=== PATIENT | male | born 1945 | race Caucasian/White ===

== ENCOUNTER 2021-03-08 14:03 | Observation (INO) ==
[2021-03-08 15:03] LABS: Mean Platelet Volume 10.8 fL (9.4-12.4); Red Cell Distribution Width 13.2 % (11.5-14.5)
[2021-03-08 15:05] LABS: Hematocrit 38.4 % (37.5-50.1); Hemoglobin 13.2 g/dL (12.9-16.9); Immature Platelets 6.5 % (1.1-6.1); Mean Corpuscular HGB Conc 34.4 g/dL (31.6-35.5); Mean Corpuscular Hemoglobin 30.9 pg (28.0-33.3); Mean Corpuscular Volume 89.9 fL (83.0-100.0); Red Blood Count 4.27 M/mcL (4.19-5.50); White Blood Count 3.9 K/mcL (4.3-11.1)
[2021-03-08 15:13] LABS: INR 1.2; Prothrombin Time 13.3 Seconds (9.4-12.1)
[2021-03-08 15:16] LABS: Activated Partial Thrombo Time 34.1 Seconds (26.0-36.0)
[2021-03-08 15:41] LABS: Platelet Count 95 K/mcL (140-400)
[2021-03-08 15:48] LABS: Troponin I 0.37 ng/mL (< 0.04)
[2021-03-08] MEDS ORDERED: Isovue-370 500 ML BOTTLE IVP ONE (15:48)
[2021-03-08 15:52] LABS: Lymphocytes # 0.5 K/mcL (0.6-4.6); Neutrophils # 2.4 K/mcL (1.6-8.9)
[2021-03-08 15:54] LABS: Platelet Estimate Decreased (Normal)
[2021-03-08 15:56] LABS: Reactive Lymphocytes Present (Not Present)
[2021-03-08 16:16] LABS: BUN/Creatinine Ratio 31 (6-26); Blood Urea Nitrogen 27 mg/dL (8-23); Calcium 8.4 mg/dL (8.6-10.3); Carbon Dioxide 23 mEq/L (23-29); Chloride 100 mEq/L (98-107); Glucose 264 mg/dL (70-105); Osmolality,Calculated 292 (280-300); Potassium 4.8 mEq/L (3.5-5.1); Sodium 134 mEq/L (136-145); eGFR For African Americans > 60 (> 60); eGFR For Non-African Americans > 60 (> 60)
[2021-03-08 17:23] LABS: Influenza A PCR Negative (Negative); Influenza B PCR Negative (Negative); Resp. Syncytial Virus PCR Negative (Negative)
[2021-03-08] MEDS ORDERED: Aspirin 325 MG TABLET PO ONE (17:34)
[2021-03-08] MEDS ORDERED: *HR* Heparin 5,000 UNIT/ML VIAL IVP PRN ×2 (17:36)
[2021-03-08] MEDS ORDERED: *HR* Heparin 5,000 UNIT/ML VIAL IVP ONE (17:36)
[2021-03-08] MEDS ORDERED: Ondansetron 4 MG/2 ML VIAL IVP PRN (17:42)
[2021-03-08] MEDS ORDERED: Naloxone 0.4 MG/ML INJ IVP PRN (17:42)
[2021-03-08] MEDS ORDERED: Perflutren Lipid Microsphere 1.3 ML in 0.9 % Sodium Chloride 8.7 ML IVP PRN (17:44)
[2021-03-08 17:47] LABS: SARS-CoV-2 by PCR (In House) Negative (Negative)
[2021-03-08] MEDS ORDERED: D5% in Water 1,000 ML IVC PRN (17:50)
[2021-03-08] MEDS ORDERED: *HR* Dextrose 50 % in Water (Syg) 50 ML SYRINGE IVP PRN (17:50)
[2021-03-08] MEDS ORDERED: Dextrose Gel 15 GM/37.5 ML TUBE PO PRN ×2 (17:50)
[2021-03-08] MEDS: Heparin 25,000UNIT/250ML 1/2NS 25,000 UNIT/250 ML IV.SOLN IVC SCH (19:15)
[2021-03-08 20:22] LABS: Estimated Average Glucose 189 mg/dl; Hemoglobin A1C 8.2 %
[2021-03-08] MEDS: Insulin LISPRO 300 UNITS/3 ML VIAL SUBQ SCH (23:11)
[2021-03-08] MEDS: Insulin DETEMIR 100 UNIT/ML X5UNITS SUBQ SCH (23:12)
[2021-03-08] MEDS: carvediloL 6.25 MG TABLET PO SCH (23:12)
[2021-03-09 02:44] LABS: Basophils % 0.3 %; Eosinophils # 0.1 K/mcL (0.0-0.6); Hematocrit 38.8 % (37.5-50.1); Hemoglobin 13.3 g/dL (12.9-16.9); Immature Granulocytes % 0.3 % (0-4); Immature Platelets 7.2 % (1.1-6.1); Lymphocytes # 0.7 K/mcL (0.6-4.6); Lymphocytes % 18.1 %; Mean Corpuscular HGB Conc 34.3 g/dL (31.6-35.5); Mean Corpuscular Hemoglobin 31.1 pg (28.0-33.3); Mean Corpuscular Volume 90.9 fL (83.0-100.0); Mean Platelet Volume 11.1 fL (9.4-12.4); Monocytes # 0.7 K/mcL (0.0-1.3); Monocytes % 18.4 %; Neutrophils # 2.2 K/mcL (1.6-8.9); Red Blood Count 4.27 M/mcL (4.19-5.50); Red Cell Distribution Width 13.2 % (11.5-14.5); Segmented Neutrophils % 59.9 %; White Blood Count 3.7 K/mcL (4.3-11.1)
[2021-03-09 02:45] LABS: Platelet Count 86 K/mcL (140-400)
[2021-03-09 03:10] LABS: BUN/Creatinine Ratio 32 (6-26); Blood Urea Nitrogen 25 mg/dL (8-23); Calcium 8.3 mg/dL (8.6-10.3); Carbon Dioxide 28 mEq/L (23-29); Chloride 102 mEq/L (98-107); Glucose 237 mg/dL (70-105); Magnesium 1.8 mg/dL (1.6-2.6); Osmolality,Calculated 294 (280-300); Potassium 3.8 mEq/L (3.5-5.1); Sodium 136 mEq/L (136-145); Troponin I 0.24 ng/mL (< 0.04); eGFR For African Americans > 60 (> 60); eGFR For Non-African Americans > 60 (> 60)
[2021-03-09 03:19] LABS: Platelet Estimate Decreased (Normal); Reactive Lymphocytes Present (Not Present)
[2021-03-09] MEDS ORDERED: Insulin LISPRO 300 UNITS/3 ML VIAL SUBQ SCH (07:30)
[2021-03-09] MEDS ORDERED: Acetaminophen 325 MG TABLET PO PRN (07:39)
[2021-03-09] MEDS: Insulin LISPRO 300 UNITS/3 ML VIAL SUBQ SCH ×6 (09:08→23:01)
[2021-03-09] MEDS: Aspirin 81 MG TAB.CHEW PO SCH (09:26)
[2021-03-09] MEDS: carvediloL 6.25 MG TABLET PO SCH ×2 (09:27→22:10)
[2021-03-09] MEDS: lisinopriL 20 MG TABLET PO SCH (09:27)
[2021-03-09] MEDS: amLODIPine 5 MG TABLET PO SCH (09:27)
[2021-03-09] MEDS: Cholecalciferol (D-3) 1,000 UNIT (25MCG) TABLET PO SCH (09:27)
[2021-03-09] MEDS: Heparin 25,000UNIT/250ML 1/2NS 25,000 UNIT/250 ML IV.SOLN IVC SCH (22:00)
[2021-03-09] MEDS: Insulin DETEMIR 100 UNIT/ML X5UNITS SUBQ SCH ×3 (22:01→22:12)
[2021-03-09] MEDS: *HR* Heparin 5,000 UNIT/ML VIAL SQ SCH (22:10)
[2021-03-10 03:38] VITALS: O2SAT 96
[2021-03-10] MEDS: Insulin LISPRO 300 UNITS/3 ML VIAL SUBQ SCH ×2 (04:24→08:07)
[2021-03-10] MEDS: *HR* Heparin 5,000 UNIT/ML VIAL SQ SCH (05:54)
[2021-03-10 07:08] VITALS: BP 145/66; PULSE 65; TEMP 98.1
[2021-03-10] MEDS: carvediloL 6.25 MG TABLET PO SCH (08:38)
[2021-03-10] MEDS: lisinopriL 20 MG TABLET PO SCH (08:38)
[2021-03-10] MEDS: Aspirin 81 MG TAB.CHEW PO SCH (08:38)
[2021-03-10] MEDS: Cholecalciferol (D-3) 1,000 UNIT (25MCG) TABLET PO SCH (08:38)
[2021-03-10] MEDS: amLODIPine 5 MG TABLET PO SCH (08:39)
[2021-03-10] MEDS ORDERED: Isosorbide MONOnitrate (24 HR) 30 MG TAB.ER.24H PO SCH (09:00)
[2021-03-10 09:34] LABS: Influenza A PCR Negative (Negative); Influenza B PCR Negative (Negative); Resp. Syncytial Virus PCR Negative (Negative)
[2021-03-10 09:38] LABS: SARS-CoV-2 by PCR (In House) Negative (Negative)
== END 2021-03-10 11:08 ==
LOC: EMEROOARM 14:03 → 3BNU 14:03 → SUATTDRO 18:09 → 3BNU 19:40
PROVIDERS: ADMIT Student in an Organized Health Care Education/Training Program; ATTEND Internal Medicine